=== PATIENT | female | born 1985 | race Caucasian/White ===

== ENCOUNTER 2019-10-31 22:46 | Emergency (ER) | payer OTHER, SELFPAY ==
--- NOTE | ~2019-10-31 | XR_ITS ---
EXAMINATION: XR chest 2V DATE: 10/31/2019 23:38 INDICATION: Nonproductive cough TECHNIQUE: PA and lateral views of the chest are obtained. COMPARISON: 10/20/2017 FINDINGS: The lungs are free of acute opacities. There is no pleural effusion or pneumothorax. The ca rdiomediastinal silhouette is normal. The visualized bones and soft tissues are unremarkable. IMPRESSION: 1. No acute cardiopulmonary abnormality. Reviewed, dictated and finalized at location A. ONAL LINES ADVISOR
--- NOTE | ~2019-10-31 | CT_ITS ---
EXAMINATION: CT abdomen pelvis w con INDICATION: Right flank and abdominal pain TECHNIQUE: Computed tomographic images of the abdomen and pelvis were obtained after the administrati on of 100 cc of Omnipaque 350 intravenous contrast. The dose-length product (DLP) was 343.16 mGy-cm. Automated exposure control and iterative reconstruction technique were employed. COMPARISON: 10/20/2017 FINDINGS: Minimal dependent atelectasis is present in the lung bases. The heart size is normal. The g allbladder is surgically absent. There is mild enlargement of the common bile duct and central intrah epatic ducts which is likely due to post cholecystectomy state. The liver, spleen, pancreas, and adre nal glands are normal. The kidneys are unremarkable. No pathologically enlarged abdominal or pelvic l ymph nodes are identified. There is no free intraperitoneal gas or evidence of bowel obstruction. A l arge volume of colonic stool is present. There is a small umbilical hernia containing fat. IMPRESSION: 1. Constipation. Reviewed, dictated and finalized at location A. TRICAL PROSPECTING OPERATOR IMPRESSION: 1. Constipation.
[2019-10-31 22:50] VITALS: BP 151/74; PULSE 77; RESP 18; TEMP 37.1; O2SAT 100
--- NOTE | 2019-10-31 23:09 | ED.ABDPAIN ---
HPI - Abdominal Pain General Chief Complaint: Urogenital-Female Stated Complaint: right flank pain, urinating blood Time Seen by Provider: 10/31/19 22:55 Source: patient and RN notes reviewed Mode of arrival: ambulatory Limitations: no limitations History of Present Illness HPI narrative: Pt is a 34 y/o female with a Hx of kidney stones, who presents to the ED with c/o rt flank pain starting 4 days ago. She notes that her pain radiates upwards into her rt lower ribs. Pt also reports intermittent shooting pains in the lt side of her ABD, ABD distension, and nausea, but denies any vomiting or rash. She notes that she has been taking Tylenol and ASA for her symptoms. MD elicited complaint: flank pain Pertinent past history: kidney stones and past UTI Onset (ago): day(s) (4) Location: R flank Radiation: other (rt lower ribs) Associated symptoms: nausea and other (shooting pain in lt side of ABD; ABD distension) Related Data Allergies Allergy/AdvReac Type Severity Reaction Status Date / Time cephalexin Allergy Unknown Verified 03/27/12 10:05 Cephalosporins Allergy Unknown Verified 08/20/16 11:16 levothyroxine sodium Allergy Unknown Verified 08/20/16 11:16 metoclopramide Allergy Unknown PANIC Verified 10/10/18 11:12 ATTACK morphine Allergy Unknown Verified 08/20/16 11:16 Review of Systems Review of Systems: All systems reviewed & are unremarkable except as noted in HPI and below Gastrointestinal: Gastrointestinal: Reports abdominal pain (shooting pain in lt side of ABD), Reports nausea, Denies vomiting and Reports other (ABD distension) Genitourinary: Genitourinary: Reports flank pain (rt flank pain radiating into rt lower ribs) Integumentary/Breasts: Skin/Breast: Denies rash PMFSH Past Medical History Medical History Anemia Anxiety Back pain DDD (degenerative disc disease) Depression Endometriosis Fibromyalgia Heart murmur Hypothyroidism Kidney stones Migraines Mitral valve prolapse Ovarian cyst Pneumonia Rheumatoid arthritis Rib fractures UTI (urinary tract infection) Surgical History Surgical History History of hysterectomy Hx of cholecystectomy Hx of dilation and curettage Hx of ovarian cystectomy Hx of tonsillectomy Hx of tubal ligation Family History Family History (Updated 06/02/14 @ 07:13 by DOCTOR UNKNOWN) Mother Family history of migraine headaches Asthma Social History Social History Smoking status: Heavy tobacco smoker Alcohol intake: current Comments PCP is Dr. Barbour. Exam Narrative: Exam Narrative: APPEARANCE: No acute distress, nontoxic, resting in bed HEENT: Normocephalic, atraumatic, OMM RESPIRATORY: No respiratory distress, clear to auscultation bilaterally with no rhonchi wheezing or rales CARDIOVASCULAR: RRR s murmur ABDOMINAL: Soft, nondistended, tender palpation right upper quadrant, no tenderness in left upper quadrant, left lower quadrant right lower quadrant, no rebound or guarding, right flank tenderness, no overlying erythema or signs of infection MUSCULOSKELETAl: Moves all extremities. No clubbing, cyanosis or edema. NEURO: Awake and alert. Following commands, speech normal, no focal deficits SKIN:: Warm, dry. Normal Color PSYCHIATRIC: Normal affect/mood Course Course Emergency Course: Patient meets PERC rule criteria and no further testing needs to be performed for pulmonary embolism. Patient sleeping in room patient was awake and states she is feeling better at this time Patient states that they are feeling much better at this time. States abdominal pain has improved. Repeat abdominal exam shows the patient's abdomen to be soft and nontender. Discussed with patient results of workup and diagnosis. Discussed need for follow-up with primary care physician, reasons to return to the emergency department in proper u
[2019-10-31] MEDS: LACTATED RINGERS 1,000 ML 999 ML IV CONT (23:17)
[2019-10-31] MEDS: KETOROLAC 30 MG/ML VIAL (*BKC) IV PUSH (23:24)
[2019-10-31 23:38] LABS: Basophils Percent Auto 0.3 % (0.2-1.2); Eosinophils Absolute Auto 0.1 K/mm3 (0-0.3); Eosinophils Percent Auto 0.7 % (0-4.4); Hematocrit 40.7 % (37.0-47.0); Hemoglobin 13.2 g/dL (12.0-15.0); Immature Granulocyte Absolute 0.02 K/mm3 (0.00-0.031); Immature Granulocyte Percent A 0.2 % (0-0.5); Lymphocytes Percent Auto 37.3 % (18.3-44.2); Mean Corpuscular HGB Conc 32.4 g/dl (32-36); Mean Corpuscular Hemoglobin 30.4 pg (26-34); Mean Corpuscular Volume 93.8 fl (80-100); Mean Platelet Volume 9.5 fl (7.4-10.4); Monocytes Absolute Auto 0.4 K/mm3 (0.1-0.6); Monocytes Percent Auto 4.3 % (2.6-8.5); Neutrophils Absolute Auto 4.9 K/mm3 (1.3-6.7); Neutrophils Percent Auto 57.2 % (45.5-73.1); Platelet Count Result 261 k/mm3 (150-375); Red Blood Count 4.34 M/mm3 (4.2-5.4); White Blood Count 8.6 K/mm3 (4.5-10.0)
[2019-10-31 23:47] LABS: Alanine Aminotransferase 13 U/L (4-35); Albumin Level 4.1 g/dL (3.5-5.1); Alkaline Phosphatase 57 U/L (38-126); Aspartate Amino Transferase 21 U/L (14-36); Bilirubin,Total 0.1 mg/dL (0.2-1.3); Blood Urea Nitrogen 5 mg/dL (7-17); Calcium 9.4 mg/dL (8.4-10.2); Carbon Dioxide 29 mmol/L (22-30); Chloride 103 mmol/L (98-107); Estimated CRCL calculation 118 ml/min; Estimated Glomerular Filt Rate > 60; Glucose 82 mg/dL (65-105); Lipase 73 U/L (23-300); Potassium 3.8 mmol/L (3.4-5.0); Sodium 140 mmol/L (137-145)
[2019-11-01 00:29] LABS: Add Urine Microscopic? NO; Appearance Urine Clear (Clear); Bilirubin Urine Negative (Negative); Blood Urine Negative (Negative); Color Urine Straw (Yellow); Glucose Urine UA Negative (Negative); Ketones Urine Negative (Negative); Leukocyte Esterase Ur Negative LEU/UL (Negative); Nitrate Urine Negative (Negative); Protein Urine Negative (Negative); Specific Grav Ur 1.008 (1.001-1.035); Urobilinogen Urine Negative mg/dL (<2.0)
[2019-11-01] MEDS: HYDROMORPHONE HCL 1 MG/ML INJ 0.5 MG IV PUSH (01:10)
[2019-11-01 01:16] VITALS: BP 123/68; PULSE 70; RESP 18; O2SAT 99
--- NOTE | 2019-11-14 02:33 | PC.NURSE ---
LATE ENTRY This note is being entered to document information to the patient's record. The following information was omitted on [11/01/19], by [new].1L of LR finished infusing at 00:15.
--- NOTE | 2019-11-15 13:44 | PC.NURSE ---
LATE ENTRY This note is being entered to document information to the patient's record. The following information was omitted on [11/01/2019], by [Saul Garcia RN]. LR stopped at 0015
== END 2019-11-01 01:17 | disposition home or self-care (01) ==
PROVIDERS: Emergency Provider Emergency Medicine
DX: R10.11 Right upper quadrant pain (principal); Z86.2 Personal history of diseases of the blood and blood-forming organs and certain disorders involving the immune mechanism; N80.9 Endometriosis, unspecified; M79.7 Fibromyalgia; E03.9 Hypothyroidism, unspecified; I34.1 Nonrheumatic mitral (valve) prolapse; M06.9 Rheumatoid arthritis, unspecified; Z87.440 Personal history of urinary (tract) infections; K59.00 Constipation, unspecified
CPT/HCPCS: 36415; 71046; 74177; 80053; 81003; 83690; 85025; 96361; 96374; 96375; 99284; J1170; J1885; J7120; Q9967

== ENCOUNTER 2020-01-27 20:30 | Emergency (ER) | payer OTHER, SELFPAY ==
--- NOTE | ~2020-01-27 | CT_ITS ---
EXAMINATION: CTA chest PE protocol EXAM DATE: 01/27/2020 21:57 INDICATION: Cough and shortness of breath. Right flank pain. TECHNIQUE: Spiral CTA of the chest (pulmonary arteries) was performed with 100 cc Omnipaque 350 intr avenous contrast injection. Images were acquired during the pulmonary arterial phase. Coronal maxi mum intensity projection 3D-reconstructions were created by the technologist on dedicated workstation . Axial, coronal and sagittal reformatted images were reviewed. The dose-length product (DLP) for t his examination was 198.54 mGy-cm. The exposure was tailored according to patient size (auto mA exp osure control), and iterative reconstruction (ASIR) was used as additional dose reduction technique. Comparison is made to prior examination from 12/18/2006. FINDINGS: Pulmonary arteries are well opacified and without intraluminal filling defects. No thora cic aortic dissection. The lungs are clear. There are no pleural or pericardial effusions. Trach eobronchial tree is patent. There is no mediastinal, hilar or axillary lymphadenopathy. There is no pneumothorax. Heart normal in size. No evidence of coronary arterial calcification. The upper pole of the right kidney was imaged and is without hydronephrosis. There are cholecystectom y clips. There are subacute right ninth and 10th rib fractures posteromedially, with exuberant callu s formation, but incomplete solid bone bridging. Potential reinjury to one of these could be a cause of right flank pain. IMPRESSION: 1. No pulmonary emboli or acute cardiopulmonary findings. 2. Subacute right ninth and 10th rib fractures posteromedially. Reviewed, dictated and finalized at location G.
[2020-01-27 20:32] VITALS: BP 149/71; PULSE 88; RESP 18; TEMP 37.7; O2SAT 100
--- NOTE | 2020-01-27 20:48 | ED.ABDPAIN ---
HPI - Abdominal Pain General Chief Complaint: Abdominal Pain Stated Complaint: n/v and fever Time Seen by Provider: 01/27/20 20:45 History of Present Illness HPI narrative: She reports stabbing pain in the right flank for the past few days. Worse with coughing and deep breathing. She does report a chronic cough that has been worse recently. Associated with mild dypnea and low grade fever. She has also had occasional nausea. Related Data Allergies Allergy/AdvReac Type Severity Reaction Status Date / Time cephalexin Allergy Unknown Verified 03/27/12 10:05 Cephalosporins Allergy Unknown Verified 08/20/16 11:16 levothyroxine sodium Allergy Unknown Verified 08/20/16 11:16 metoclopramide Allergy Unknown PANIC Verified 10/10/18 11:12 ATTACK morphine Allergy Unknown Verified 08/20/16 11:16 Review of Systems Review of Systems: All systems reviewed & are unremarkable except as noted in HPI and below Constitutional: Constitutional: Denies fatigue, Reports fever(s) and Denies weakness ENT: Denies sore throat Cardiovascular: Cardiovascular: Denies chest pain Respiratory: Respiratory: Reports cough and Reports dyspnea Gastrointestinal: Gastrointestinal: Reports nausea Genitourinary: Genitourinary: Denies hematuria and Denies dysuria Neurologic: Denies dizziness and Denies weakness PMFSH Past Medical History Medical History Anemia Anxiety Back pain DDD (degenerative disc disease) Depression Endometriosis Fibromyalgia Heart murmur Hypothyroidism Kidney stones Migraines Mitral valve prolapse Ovarian cyst Pneumonia Rheumatoid arthritis Rib fractures UTI (urinary tract infection) Surgical History Surgical History History of hysterectomy Hx of cholecystectomy Hx of dilation and curettage Hx of ovarian cystectomy Hx of tonsillectomy Hx of tubal ligation Family History Family History Mother Family history of migraine headaches Asthma Social History Social History Smoking status: Heavy tobacco smoker Alcohol intake: current Gender identity (if verbalized by the patient): Female Exam Const: General: no acute distress and alert Orientation/consciousness: patient oriented x3 HENMT: Head: normal to inspection Resp: Effort & Inspection: normal respiratory effort Auscultation: clear to auscultation bilaterally Cardio: Rate: regular rate Rhythm: regular rhythm GI: GI Palp: Yes Soft to palpation and No Tenderness to palpation present (GI) Back/Spine/Pelvis: Other: tenderness over right ribs inferior laterally Skin: General skin exam: normal color Neuro: General: patient oriented x3, moves all extremities, no focal motor deficits and CN's II-XI intact bilaterally Speech: normal speech Extrem: General: normal to inspection and no edema Course Vital Signs Vital signs: Vital Signs Temperature 37.7 C H 01/27/20 20:32 Pulse Rate 88 01/27/20 20:32 Respiratory Rate 18 01/27/20 20:32 Blood Pressure 149/71 H 01/27/20 20:32 Pulse Oximetry 100 01/27/20 20:32 Temperature 36.3 C L 01/27/20 23:29 Pulse Rate 80 01/27/20 23:29 Respiratory Rate 19 01/27/20 23:29 Blood Pressure 133/75 01/27/20 23:29 Pulse Oximetry 100 01/27/20 23:29 MDM - Abdominal Pain MDM Narrative Medical decision making narrative: CT shows rib fractures. No PE or pneumonia Differential Diagnosis Differential diagnosis: Likely calculus of kidney and other (PE, pneumonia, pleurisy) Medical Records Attestation: I reviewed the patient's medical records. Lab Data Attestation: I reviewed the patient's lab results. Result diagrams: 01/27/20 21:14 01/27/20 21:14 Labs: Lab Results 01/27/20 01/27/20 01/27/20 Range/Units 20:45 21:11 21:14
[2020-01-27 20:55] LABS: Add Urine Microscopic? NO; Appearance Urine Clear (Clear); Bilirubin Urine Negative (Negative); Blood Urine Negative (Negative); Color Urine Straw (Yellow); Glucose Urine UA Negative (Negative); Ketones Urine Negative (Negative); Leukocyte Esterase Ur Negative LEU/UL (Negative); Nitrate Urine Negative (Negative); Protein Urine Negative (Negative); Specific Grav Ur 1.006 (1.001-1.035); Urobilinogen Urine Negative mg/dL (<2.0)
--- NOTE | 2020-01-27 20:59 | ECG_ITS ---
Measurements Intervals [place] Rate: 74 P: 60 NJ: 204 QRS: -68 QRSD: 149 T: 89 QT: 330 QTc: 367 Interpretive Statements SINUS RHYTHM LEFT AXIS DEVIATION BORDERLINE AV CONDUCTION DELAY IVCD- QRS MORPHOLOGY OF BOTH RBBB, LBBB BASELINE WANDER- I, II, AVR, AVL, AVF, V1-V4 ABNORMAL ECG Electronically Signed On 01-28-2020 7:10:02 CDT by Memo Banda D.O.
[2020-01-27 21:21] LABS: Basophils Percent Auto 0.4 % (0.2-1.2); Eosinophils Percent Auto 0.5 % (0-4.4); Hematocrit 42.1 % (37.0-47.0); Hemoglobin 13.9 g/dL (12.0-15.0); Immature Granulocyte Absolute 0.01 K/mm3 (0.00-0.031); Immature Granulocyte Percent A 0.1 % (0-0.5); Lymphocytes Percent Auto 40.8 % (18.3-44.2); Mean Corpuscular Hemoglobin 30.5 pg (26-34); Mean Corpuscular Volume 92.5 fl (80-100); Monocytes Absolute Auto 0.3 K/mm3 (0.1-0.6); Monocytes Percent Auto 3.9 % (2.6-8.5); Neutrophils Percent Auto 54.3 % (45.5-73.1); Platelet Count Result 289 k/mm3 (150-375); Red Blood Count 4.55 M/mm3 (4.2-5.4); Red Cell Distribution Width 12.5 % (11.5-14.5); White Blood Count 7.4 K/mm3 (4.5-10.0)
[2020-01-27 21:32] LABS: Alanine Aminotransferase 11 U/L (4-35); Albumin Level 4.1 g/dL (3.5-5.1); Alkaline Phosphatase 62 U/L (38-126); Aspartate Amino Transferase 20 U/L (14-36); Bilirubin,Total 0.2 mg/dL (0.2-1.3); Blood Urea Nitrogen 7 mg/dL (7-17); Calcium 9.5 mg/dL (8.4-10.2); Carbon Dioxide 34 mmol/L (22-30); Chloride 101 mmol/L (98-107); Estimated CRCL calculation 103 ml/min; Estimated Glomerular Filt Rate > 60; Glucose 112 mg/dL (65-105); Lipase 91 U/L (23-300); Potassium 3.7 mmol/L (3.4-5.0); Sodium 139 mmol/L (137-145)
[2020-01-27 22:06] LABS: INR 0.9
[2020-01-27 22:07] LABS: Partial Thromboplastin Time 28.5 SECONDS (22.3-36.8)
[2020-01-27 22:10] LABS: Basophils Percent Auto 0.5 % (0.2-1.2); Eosinophils Percent Auto 0.5 % (0-4.4); Hematocrit 42.5 % (37.0-47.0); Hemoglobin 13.7 g/dL (12.0-15.0); Immature Granulocyte Absolute 0.02 K/mm3 (0.00-0.031); Immature Granulocyte Percent A 0.3 % (0-0.5); Lymphocytes Absolute Auto 3.12 K/mm3 (0.9-3.2); Lymphocytes Percent Auto 42.6 % (18.3-44.2); Mean Corpuscular HGB Conc 32.2 g/dl (32-36); Mean Corpuscular Hemoglobin 29.9 pg (26-34); Mean Corpuscular Volume 92.8 fl (80-100); Mean Platelet Volume 10.2 fl (7.4-10.4); Monocytes Absolute Auto 0.3 K/mm3 (0.1-0.6); Monocytes Percent Auto 4.1 % (2.6-8.5); Neutrophils Absolute Auto 3.8 K/mm3 (1.3-6.7); Platelet Count Result 299 k/mm3 (150-375); Red Blood Count 4.58 M/mm3 (4.2-5.4); Red Cell Distribution Width 12.7 % (11.5-14.5); White Blood Count 7.3 K/mm3 (4.5-10.0)
[2020-01-27] MEDS: ONDANSETRON INJ 4 MG/2 ML VIAL IV PUSH (22:30)
[2020-01-27 22:58] VITALS: BP 122/83; PULSE 78; RESP 18; O2SAT 100
[2020-01-27] MEDS: KETOROLAC 30 MG/ML VIAL (*BKC) IV PUSH (23:28)
[2020-01-27 23:29] VITALS: BP 133/75; PULSE 80; RESP 19; TEMP 36.3; O2SAT 100
== END 2020-01-27 23:30 | disposition home or self-care (01) ==
PROVIDERS: Emergency Provider Emergency Medicine
DX: S22.41XA Multiple fractures of ribs, right side, initial encounter for closed fracture (principal); Z86.2 Personal history of diseases of the blood and blood-forming organs and certain disorders involving the immune mechanism; N80.9 Endometriosis, unspecified; M79.7 Fibromyalgia; E03.9 Hypothyroidism, unspecified; Z87.442 Personal history of urinary calculi; I34.1 Nonrheumatic mitral (valve) prolapse; M06.9 Rheumatoid arthritis, unspecified; Z87.440 Personal history of urinary (tract) infections; X58.XXXA Exposure to other specified factors, initial encounter
CPT/HCPCS: 36415; 71275; 80053; 81003; 81025; 83690; 85025; 85610; 85730; 93005; 96374; 96375; 99284; J1885; J2405; Q9967

== ENCOUNTER 2022-07-02 12:43 | Emergency (ER) | payer OTHER, SELFPAY ==
--- NOTE | ~2022-07-02 | XR_ITS ---
EXAMINATION: XR foot RT min 3V DATE: 07/02/2022 13:13 INDICATION: Crush injury of the foot TECHNIQUE: Dorsoplantar, lateral, and 2 oblique views of the right foot were obtained. COMPARISON: 12/02/2012 FINDINGS: There is no fracture, dislocation, or subluxation. The bones, soft tissues, and joint space s are normal. IMPRESSION: 1. No acute osseous abnormality. Reviewed, dictated and finalized at location A.
[2022-07-02 12:47] VITALS: BP 147/88; PULSE 78; RESP 16; TEMP 36.7; O2SAT 98
--- NOTE | 2022-07-02 13:07 | ED.LOWEXIN ---
HPI - Extremity Injury (Lower) General Chief Complaint: Extremity Injury, Lower Stated Complaint: r foot injury Time Seen by Provider: 07/02/22 13:02 Source: patient and RN notes reviewed Mode of arrival: ambulatory Limitations: no limitations History of Present Illness HPI Narrative: This is a 37 year old female who presents for evaluation of right foot pain. Patient states she was at work when a heavy cart accidentally was rolled over her right foot. This occurred on Friday. She states her foot was swollen and bruised at the time of the injury. She has come to xray today because she is still having pain with improvement of bruising and swelling. SHe has been taking tylenol and ibuprofen with relief of her pain. Her pain is located right lateral and top her of her right foot. Related Data Home Medications Medication Instructions Recorded Confirmed No Home Medications 07/02/22 Allergies Allergy/AdvReac Type Severity Reaction Status Date / Time cephalexin Allergy Unknown Rash Verified 07/02/22 12:52 Cephalosporins Allergy Unknown Rash Verified 07/02/22 12:52 levothyroxine sodium Allergy Unknown Rash Verified 07/02/22 12:52 metoclopramide Allergy Unknown PANIC Verified 10/10/18 11:12 ATTACK morphine Allergy Unknown Rash Verified 07/02/22 12:52 Review of Systems Review of Systems: All systems reviewed & are unremarkable except as noted in HPI and below Musculoskeletal: Musculoskeletal: Reports arthralgias and Denies joint swelling Integumentary/Breasts: Skin/Breast: Denies rash and Denies skin ulcer PMFSH Past Medical History Medical History (Updated 07/02/22 @ 13:31 by Patience Jensen MD) Anemia Anxiety Back pain DDD (degenerative disc disease) Depression Endometriosis Fibromyalgia Heart murmur Hypothyroidism Kidney stones Migraines Mitral valve prolapse Ovarian cyst Pneumonia Rheumatoid arthritis Rib fractures UTI (urinary tract infection) Surgical History Surgical History History of hysterectomy Hx of cholecystectomy Hx of dilation and curettage Hx of ovarian cystectomy Hx of tonsillectomy Hx of tubal ligation Family History Family History Mother Family history of migraine headaches Asthma Social History Social History Smoking status: Heavy tobacco smoker Alcohol intake: current Gender identity (if verbalized by the patient): Female Exam Const: General: no acute distress and alert Nutritional Appearance: thin Orientation/consciousness: patient oriented x3 Limitations: no limitations HENMT: Head: normal to inspection Eyes: EOM: EOMs intact bilaterally Resp: Effort & Inspection: normal respiratory effort Skin: General skin exam: normal color Rashes: no rashes Wounds: no wounds Neuro: General: patient oriented x3 Speech: normal speech Extrem: Other: right lateral and dorsum of foot with TTP , no bruising, no deformity Psych: Mental Status: mental status grossly normal Course Reevaluation(s) Reevaluation #1: I Discussed with patient that her xray is negative for fracture. Date: 07/02/22 Time: 13:30 Vital Signs Vital signs: Vital Signs Temperature 98.1 F 07/02/22 12:47 Pulse Rate 78 07/02/22 12:47 Respiratory Rate 16 07/02/22 12:47 Blood Pressure 147/88 H 07/02/22 12:47 Pulse Oximetry 98 07/02/22 12:47 Oxygen Delivery Room Air 07/02/22 12:47 Temperature 98.1 F 07/02/22 12:47 Pulse Rate 78 07/02/22 12:47 Respiratory Rate 16 07/02/22 12:47 Blood Pressure 147/88 H 07/02/22 12:47 Pulse Oximetry 98 07/02/22 12:47 Oxygen Delivery Room Air 07/02/22 12:47 MDM - Extremity Injury (Lower) Imaging Data Radiologist's impression: ITS Impressions Foot X-Ray 07/02/22 13:14 IMPRESSION: 1. No acute osseous abnormali
== END 2022-07-02 14:00 | disposition home or self-care (01) ==
LOC: ANHED 13:37
PROVIDERS: Emergency Provider General Practice
DX: S90.31XA Contusion of right foot, initial encounter (principal); I34.1 Nonrheumatic mitral (valve) prolapse; M06.9 Rheumatoid arthritis, unspecified; M79.7 Fibromyalgia; N80.9 Endometriosis, unspecified; Z87.01 Personal history of pneumonia (recurrent); Z87.442 Personal history of urinary calculi; Z87.440 Personal history of urinary (tract) infections; Z90.710 Acquired absence of both cervix and uterus; F17.200 Nicotine dependence, unspecified, uncomplicated; W22.8XXA Striking against or struck by other objects, initial encounter
CPT/HCPCS: 73630; 99283

== ENCOUNTER 2022-07-17 20:42 | Emergency (ER) | payer OTHER, SELFPAY ==
--- NOTE | ~2022-07-17 | CT_ITS ---
EXAMINATION: CT cervical spine wo con DATE: 07/17/2022 22:50 INDICATION: RUE weakness TECHNIQUE: Computed tomography (CT) of the cervical spine was performed without intravenous contrast. Automated exposure control and iterative reconstruction technique were employed. The dose-length pro duct was 148.08 mGy-cm. COMPARISON: None FINDINGS: Vertebral Body Alignment: Intact. Reversal of the normal cervical lordosis which can occur with posit ioning or muscle spasm. Craniocervical and atlantoaxial alignment: Moderate degenerative change. Alignment intact. Osseous structures/fracture: No evidence of a lytic or blastic process in the visualized spine. No e vidence of acute fracture. Unfused posterior C1 arch. Cervical soft tissues: The paraspinal soft tissues planes are maintained. Paraseptal blebs on the rig ht. Centrilobular groundglass opacities bilaterally. Degenerative changes: Moderate degenerative disc disease at C5-6. 4 mm left paracentral disc protrusi on at C5-6. No severe central canal or neural foraminal narrowing. IMPRESSION: No acute fracture or traumatic malalignment in the cervical spine. Moderate degenerative disc disease and a 4 mm left paracentral disc protrusion at C5-6. Pulmonary opacities may reflect hypersensitivit y pneumonitis, respiratory bronchiolitis in smokers, or infectious airways disease. Reviewed, dictated and finalized at location K. IMPRESSION: No acute fracture or traumatic malalignment in the cervical spine. Moderate deg enerative disc disease and a 4 mm left paracentral disc protrusion at C5-6. Pul monary opacities may reflect hypersensitivity pneumonitis, respiratory bronchio litis in smokers, or infectious airways disease.
--- NOTE | ~2022-07-17 | XR_ITS ---
EXAM: XR wrist RT min 3V DATE: 07/17/2022 22:31 HISTORY: wrist weakness, NO INJURY . COMPARISON: X-ray hand 03/24/2012. FINDINGS: Normal mineralization. No fracture or dislocation. No lytic or blastic lesion. Joint space s are maintained. No erosion or periosteal change. Soft tissues within normal limits. IMPRESSION: No acute osseous finding in the right wrist. Reviewed, dictated and finalized at location K.
--- NOTE | ~2022-07-17 | CT_ITS ---
EXAMINATION: CT brain wo con DATE: 07/17/2022 22:47 INDICATION: RUE weakness . TECHNIQUE: Computed tomography (CT) of the head was performed without intravenous contrast. The mA wa s adjusted according to patient size. Iterative reconstruction technique was employed. The dose-lengt h product was 605.33 mGy-cm. COMPARISON: 01/01/2012. FINDINGS: No acute intracranial hemorrhage or extra-axial fluid collection. No hydrocephalus, mass, or herniation. No acute ischemic infarct. Unremarkable dural venous sinus attenuation. No acute osseous abnormality. The aerated spaces are clear. IMPRESSION: No acute intracranial process. Reviewed, dictated and finalized at location K.
[2022-07-17 21:06] VITALS: BP 135/90; PULSE 62; RESP 14; TEMP 36.6; O2SAT 100
--- NOTE | 2022-07-17 22:25 | ED.GENADULT ---
HPI - General Adult General Chief complaint: Headache Stated complaint: migraine, wrist problem Time Seen by Provider: 07/17/22 22:00 History of Present Illness HPI narrative: 37-year-old female presents the emergency room for evaluation of weakness in her right wrist. 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 Patient states that she also ethyl blender steering well with her right wrist. Woke up yesterday noticed weakness and loss of function to her right wrist. Denies any injury or trauma. Denies any sensory changes. States is unable to design engineer products objects with her right and, and is unable to move her wrist in certain directions. Related Data Allergies Allergy/AdvReac Type Severity Reaction Status Date / Time cephalexin Allergy Unknown Rash Verified 07/02/22 12:52 Cephalosporins Allergy Unknown Rash Verified 07/02/22 12:52 levothyroxine sodium Allergy Unknown Rash Verified 07/02/22 12:52 metoclopramide Allergy Unknown PANIC Verified 10/10/18 11:12 ATTACK morphine Allergy Unknown Rash Verified 07/02/22 12:52 Review of Systems Review of Systems: CONSTITUTIONAL: Denies fever, chills, or sweats. EYES: Denies visual changes, redness, or discharge. ENT: Denies rhinorrhea, congestion, sore throat, or otalgia. CARDIOVASCULAR: Denies chest pain, palpitations, or edema. RESPIRATORY: Denies cough or dyspnea. GASTROINTESTINAL: Denies abdominal pain, nausea, vomiting, or diarrhea. GENITOURINARY: Denies dysuria or hematuria. SKIN: Denies rash or itching. MUSCULOSKELETAL: Denies back pain, joint pain, or myalgia. NEUROLOGIC: Denies headache, numbness, dizziness, or weakness. PSYCHIATRIC: Denies anxiety or depression. [facility] Past Medical History Medical History (Updated 07/17/22 @ 23:23 by Vish Shukla APRN) Anemia Anxiety Back pain DDD (degenerative disc disease) Depression Endometriosis Fibromyalgia Heart murmur Hypothyroidism Kidney stones Migraines Mitral valve prolapse Ovarian cyst Pneumonia Rheumatoid arthritis Rib fractures UTI (urinary tract infection) Surgical History Surgical History History of hysterectomy Hx of cholecystectomy Hx of dilation and curettage Hx of ovarian cystectomy Hx of tonsillectomy Hx of tubal ligation Family History Family History Mother Family history of migraine headaches Asthma Social History Social History Smoking status: Heavy tobacco smoker Alcohol intake: current Gender identity (if verbalized by the patient): Female Exam Narrative: GENERAL: Well-appearing, well-nourished, no physical limitations, and in no acute distress. HEAD: Normocephalic, atraumatic. EYES: Conjunctivae normal, PERRLA and EOMI. CHEST: Clear to auscultation. No respiratory distress. No wheezes rales or rhonchi. No tenderness. HEART: Regular rate and rhythm. No murmur heard. Normal peripheral pulses. BACK: No cervical/thoracic/lumbar tenderness, step-offs, bony abnormality; FROM EXTREMITIES: RUE: No bony abnormality. Full range of motion of the shoulder and elbow joints. Weakness of the wrist extensors, finger extensors and brachial radialis muscle. There is no sensory loss over the plantar or dorsal surfaces of the hand. Weakness over ulnar innervated hand muscles and thumb adduction. Weakness with wrist extension. SKIN: Warm, dry, no rash. No noted wounds NEURO: See extremities PSYCH: Cooperative. Normal mood and affect. Course Vital Signs Vital signs: Vital Signs Temperature 36.6 C 07/17/22 21:06 Pulse Rate 62 07/17/22 21:06 Respiratory Rate 14 07/17/22 21:06 Blood Pressure 135/90 07/17/22 21:06 Pulse Oximetry 100 07/17/22 21:06 Oxygen Delivery Room Air 07/17/22 21:06 Temperature 36.6 C 07/17/22 21:06 Pulse Rate 62 07/17/22 21:06 Respiratory
== END 2022-07-17 23:29 | disposition home or self-care (01) ==
PROVIDERS: Emergency Provider Nurse Practitioner Family
DX: G56.31 Lesion of radial nerve, right upper limb (principal); E03.9 Hypothyroidism, unspecified; I34.1 Nonrheumatic mitral (valve) prolapse; M06.9 Rheumatoid arthritis, unspecified; M79.7 Fibromyalgia; Z87.01 Personal history of pneumonia (recurrent); Z87.442 Personal history of urinary calculi; Z87.440 Personal history of urinary (tract) infections; Z86.2 Personal history of diseases of the blood and blood-forming organs and certain disorders involving the immune mechanism; Z90.710 Acquired absence of both cervix and uterus; F17.200 Nicotine dependence, unspecified, uncomplicated
CPT/HCPCS: 70450; 72125; 73110; 99284

== ENCOUNTER 2022-08-06 16:07 | Emergency (ER) | payer OTHER, SELFPAY ==
[2022-08-06 16:48] VITALS: BP 134/93; PULSE 76; RESP 14; TEMP 36.9; O2SAT 100
[2022-08-06 18:20] VITALS: BP 151/98; PULSE 71; RESP 16; TEMP 36.8; O2SAT 100
[2022-08-06] MEDS: HYDROcodone/acetaminophen (*CRX) 5-325 MG TABLET 1 TAB PO (19:29)
[2022-08-06] MEDS: AMOXICILLIN/CLAVULANATE K 875-125 MG TAB 1 TABLET PO (19:29)
--- NOTE | 2022-08-06 19:31 | ED.DENTAL ---
HPI - Dental/Oral General Chief complaint: Dental/Oral Stated complaint: TOOTH PAIN, PALPATATIONS NOTED. PVC ON EKG Time Seen by Provider: 08/06/22 19:05 History of Present Illness HPI Narrative: Patient is a 37-year-old female who presents the ER with pain to the right lower jaw. Feels like dental pain she said previously. Located tooth #28. She does have some mild swelling. Radiates into the right ear. Worse with eating and drinking. No fevers or chills or sweats. No difficulty breathing or swallowing. Related Data Allergies Allergy/AdvReac Type Severity Reaction Status Date / Time cephalexin Allergy Unknown Rash Verified 07/02/22 12:52 Cephalosporins Allergy Unknown Rash Verified 07/02/22 12:52 levothyroxine sodium Allergy Unknown Rash Verified 07/02/22 12:52 metoclopramide Allergy Unknown PANIC Verified 10/10/18 11:12 ATTACK morphine Allergy Unknown Rash Verified 07/02/22 12:52 Review of Systems Constitutional: Constitutional: Denies chills and Denies fever(s) ENT: Denies dysphagia, Denies nasal congestion and Denies sore throat Comments: Ear pain, dental pain Respiratory: Respiratory: Denies cough and Denies dyspnea Gastrointestinal: Gastrointestinal: Denies abdominal pain, Denies nausea and Denies vomiting PMFSH Past Medical History Medical History (Updated 08/06/22 @ 19:31 by Crow Harvey MD) Anemia Anxiety Back pain DDD (degenerative disc disease) Depression Endometriosis Fibromyalgia Heart murmur Hypothyroidism Kidney stones Migraines Mitral valve prolapse Ovarian cyst Pneumonia Rheumatoid arthritis Rib fractures UTI (urinary tract infection) Surgical History Surgical History History of hysterectomy Hx of cholecystectomy Hx of dilation and curettage Hx of ovarian cystectomy Hx of tonsillectomy Hx of tubal ligation Family History Family History Mother Family history of migraine headaches Asthma Social History Social History Smoking status: Heavy tobacco smoker Alcohol intake: current Gender identity (if verbalized by the patient): Female Exam Narrative: GENERAL: Well-appearing, well-nourished, and in no acute distress. HEAD: Normocephalic, atraumatic. ENT: Mucous membranes moist. Right mandibular swelling with tenderness over the soft tissue at the base of tooth #28. No drainable abscess identified but certainly believe 1 is forming. TMs normal bilaterally. NECK: Supple. CHEST: Clear to auscultation. No respiratory distress. NEURO: Alert and oriented x3. PSYCH: Normal mood and affect. Course Course Emergency Course: [place] and Augmentin here. Discharge home with same medications. Vital Signs Vital signs: Vital Signs Temperature 98.5 F 08/06/22 16:48 Pulse Rate 76 08/06/22 16:48 Respiratory Rate 14 08/06/22 16:48 Blood Pressure 134/93 H 08/06/22 16:48 Pulse Oximetry 100 08/06/22 16:48 Oxygen Delivery Room Air 08/06/22 16:48 Temperature 98.3 F 08/06/22 18:20 Pulse Rate 71 08/06/22 18:20 Respiratory Rate 16 08/06/22 18:20 Blood Pressure 151/98 H 08/06/22 18:20 Pulse Oximetry 100 08/06/22 18:20 Oxygen Delivery Room Air 08/06/22 16:48 Discharge Plan Discharge Clinical Impression: Dental abscess Patient Disposition: Home, Self-Care Condition: Stable Instructions: Antibiotic Form, Dental Abscess (ED) Additional Instructions: Return the ER if you cannot breathe, you cannot swallow, you lose consciousness, you have additional concerns. Prescriptions: New hydrocodone-acetaminophen 5-325 mg tablet 1 tablet PO Q6H PRN (Reason: pain) Qty: 14 0RF amoxicillin-pot clavulanate 875-125 mg tablet 1 tablet PO Q12H Qty: 20 0RF No Action naproxen 500 mg tablet 500 mg PO BID Qty: 30 0RF Follow-up/Referrals: Dental
[2022-08-06 19:48] VITALS: BP 137/97; PULSE 72; RESP 16; O2SAT 98
== END 2022-08-06 19:49 | disposition home or self-care (01) ==
PROVIDERS: Emergency Provider Emergency Medicine
DX: K04.7 Periapical abscess without sinus (principal); E03.9 Hypothyroidism, unspecified; M06.9 Rheumatoid arthritis, unspecified; M79.7 Fibromyalgia; N80.9 Endometriosis, unspecified; Z90.710 Acquired absence of both cervix and uterus; Z87.01 Personal history of pneumonia (recurrent); Z87.442 Personal history of urinary calculi; Z86.2 Personal history of diseases of the blood and blood-forming organs and certain disorders involving the immune mechanism; F17.200 Nicotine dependence, unspecified, uncomplicated
CPT/HCPCS: 99283; A9270

== ENCOUNTER 2022-08-07 23:02 | Emergency (ER) | payer OTHER, SELFPAY ==
[2022-08-07 23:10] VITALS: BP 138/94; PULSE 75; RESP 16; TEMP 37.2; O2SAT 99
[2022-08-07] MEDS: ONDANSETRON HCL ODT 4 MG TABLET PO (23:27)
[2022-08-07] MEDS: SODIUM CHLORIDE 0.9% IV 1,000 ML 999 ML IV CONT (23:40)
--- NOTE | 2022-08-08 00:08 | ED.NAVMDI ---
HPI - Nausea/Vomiting/Diarrhea General Chief complaint: Nausea/Vomiting/Diarrhea Stated complaint: n/v Time Seen by Provider: 08/07/22 23:21 History of Present Illness HPI Narrative: Patient is a 37-year-old presents the ER with multiple morning. Be seen yesterday for a dental infection. She was prescribed antibiotics and pain medication. He was having trouble keeping this down due to her nausea. No fevers chills or sweats. No change in swelling of the face. No difficulty swallowing. Related Data Allergies Allergy/AdvReac Type Severity Reaction Status Date / Time cephalexin Allergy Unknown Rash Verified 07/02/22 12:52 Cephalosporins Allergy Unknown Rash Verified 07/02/22 12:52 levothyroxine sodium Allergy Unknown Rash Verified 07/02/22 12:52 metoclopramide Allergy Unknown PANIC Verified 10/10/18 11:12 ATTACK morphine Allergy Unknown Rash Verified 07/02/22 12:52 Review of Systems Constitutional: Constitutional: Denies chills and Denies fever(s) ENT: Denies dysphagia, Denies nasal congestion and Denies sore throat Comments: Dental pain, right facial swelling. Respiratory: Respiratory: Denies cough and Denies dyspnea Gastrointestinal: Gastrointestinal: Denies abdominal pain, Reports nausea and Reports vomiting PMFSH Past Medical History Medical History (Updated 08/08/22 @ 00:10 by Crow Harvey MD) Anemia Anxiety Back pain DDD (degenerative disc disease) Depression Endometriosis Fibromyalgia Heart murmur Hypothyroidism Kidney stones Migraines Mitral valve prolapse Ovarian cyst Pneumonia Rheumatoid arthritis Rib fractures UTI (urinary tract infection) Surgical History Surgical History History of hysterectomy Hx of cholecystectomy Hx of dilation and curettage Hx of ovarian cystectomy Hx of tonsillectomy Hx of tubal ligation Family History Family History Mother Family history of migraine headaches Asthma Social History Social History Smoking status: Heavy tobacco smoker Alcohol intake: current Gender identity (if verbalized by the patient): Female Exam Narrative: GENERAL: Well-appearing, well-nourished, and in no acute distress. HEAD: Normocephalic, atraumatic. ENT: Mucous membranes moist. Tender at the base of tooth #28 without abscess to drain. HEART: Regular rate and rhythm. Normal peripheral pulses. ABDOMEN: Soft, nontender, nondistended. NEURO: Alert and oriented x3. PSYCH: Normal mood and affect. Course Course Emergency Course: Patient is here with Zofran and fluids. Discharged with antiemetics. Vital Signs Vital signs: Vital Signs Temperature 98.9 F 08/07/22 23:10 Pulse Rate 75 08/07/22 23:10 Respiratory Rate 16 08/07/22 23:10 Blood Pressure 138/94 H 08/07/22 23:10 Pulse Oximetry 99 08/07/22 23:10 Oxygen Delivery Room Air 08/07/22 23:10 Temperature 98.9 F 08/07/22 23:10 Pulse Rate 75 08/07/22 23:10 Respiratory Rate 16 08/07/22 23:10 Blood Pressure 138/94 H 08/07/22 23:10 Pulse Oximetry 99 08/07/22 23:10 Oxygen Delivery Room Air 08/07/22 23:10 Discharge Plan Discharge Clinical Impression: Nausea Patient Disposition: Home, Self-Care Condition: Stable Instructions: Acute Nausea and Vomiting (ED) Additional Instructions: Return the ER if you have fever of 100.4 ?F, you lose consciousness, you cannot swallow, you cannot breathe, or you have additional concerns. Prescriptions: New ondansetron 4 mg tablet,disintegrating 4 mg PO Q6H PRN (Reason: nausea and vomiting) Qty: 10 0RF No Action naproxen 500 mg tablet 500 mg PO BID Qty: 30 0RF hydrocodone-acetaminophen 5-325 mg tablet 1 tablet PO Q6H PRN (Reason: pain) Qty: 14 0RF amoxicillin-pot clavulanate 875-125 mg tablet 1 tablet PO Q12H Qty: 20 0RF Follo
[2022-08-08 00:30] VITALS: PULSE 78; RESP 16; O2SAT 98
== END 2022-08-08 00:32 | disposition home or self-care (01) ==
PROVIDERS: Emergency Provider Emergency Medicine
DX: R11.0 Nausea (principal); M79.7 Fibromyalgia; N80.9 Endometriosis, unspecified; E03.9 Hypothyroidism, unspecified; M06.9 Rheumatoid arthritis, unspecified; I34.1 Nonrheumatic mitral (valve) prolapse; Z86.2 Personal history of diseases of the blood and blood-forming organs and certain disorders involving the immune mechanism; Z87.442 Personal history of urinary calculi; Z87.440 Personal history of urinary (tract) infections; Z90.710 Acquired absence of both cervix and uterus; F17.200 Nicotine dependence, unspecified, uncomplicated
CPT/HCPCS: 96360; 99283; A9270; J7030

== ENCOUNTER 2024-01-10 15:31 | Emergency (ER) | payer OTHER, SELFPAY ==
[2024-01-10 15:44] VITALS: BP 117/62; PULSE 69; RESP 16; TEMP 36.7; O2SAT 99
--- NOTE | 2024-01-10 16:52 | ED.GENADULT ---
HPI - General Adult General Chief complaint: Wound/Laceration Stated complaint: wound recheck Time Seen by Provider: 01/10/24 15:47 History of Present Illness HPI narrative: 38-year-old female presenting to the emergency department for evaluation a wound check. Patient has had sutures in her leg for the last 7 days. Patient states the redness has improved. Patient was suspected that she may need the sutures removed but patient also states she usually takes longer to heal. Related Data Allergies Allergy/AdvReac Type Severity Reaction Status Date / Time cephalexin Allergy Unknown Rash Verified 01/10/24 15:51 Cephalosporins Allergy Unknown Rash Verified 01/10/24 15:51 levothyroxine sodium Allergy Unknown Rash Verified 01/10/24 15:51 metoclopramide Allergy Unknown PANIC Verified 01/10/24 15:51 ATTACK morphine Allergy Unknown Rash Verified 01/10/24 15:51 Review of Systems Review of Systems: All systems reviewed & are unremarkable except as noted in HPI and below PMFSH Past Medical History Medical History (Updated 01/11/24 @ 00:11 by Dick Solares) Anemia Anxiety Back pain DDD (degenerative disc disease) Depression Endometriosis Fibromyalgia Heart murmur Hypothyroidism Kidney stones Migraines Mitral valve prolapse Ovarian cyst Pneumonia Rheumatoid arthritis Rib fractures UTI (urinary tract infection) Surgical History Surgical History History of hysterectomy Hx of cholecystectomy Hx of dilation and curettage Hx of ovarian cystectomy Hx of tonsillectomy Hx of tubal ligation Family History Family History Mother Family history of migraine headaches Asthma Social History Social History Smoking status: Heavy tobacco smoker Alcohol intake: current Gender identity (if verbalized by the patient): Female Exam Narrative: APPEARANCE: Well appearing, no pain, no distress, well-nourished. HEAD: normocephalic, atraumatic. EYES: PERRLA/EOMI, conjunctivae clear. NECK: Supple. No adenopathy, no masses. RESPIRATORY: Airway patent, respirations nonlabored. Clear to auscultation bilaterally, no rales, rhonchi, wheezing. CARDIOVASCULAR: Regular rate and rhythm without murmurs rubs or gallops. ABDOMINAL: Soft, nontender, nondistended, normal bowel sounds MUSCULOSKELETAL: Moves all extremities. Strength/ROM intact, No edema, No calf tenderness. NEURO: Alert. Cranial nerves II through XII intact. Grossly intact SKIN: Well-appearing a laceration on left lower leg Course Course Emergency Course: Patient was updated on wound care and patient will have close follow-up Vital Signs Vital signs: Vital Signs Temperature 98.1 F 01/10/24 15:44 Pulse Rate 69 01/10/24 15:44 Respiratory Rate 16 01/10/24 15:44 Blood Pressure 117/62 01/10/24 15:44 Pulse Oximetry 99 01/10/24 15:44 Temperature 97.7 F 01/10/24 17:24 Pulse Rate 101 H 01/10/24 17:24 Respiratory Rate 16 01/10/24 17:24 Blood Pressure 118/74 01/10/24 17:24 Pulse Oximetry 95 01/10/24 17:24 Medical Decision Making MDM Narrative Medical decision making narrative: 38-year-old female presenting to the emergency department for evaluation for a wound check. Laceration was not ready to have the sutures removed. No evidence of cellulitis. Wound is well-appearing otherwise. Patient was comfortable with the plan for discharge and close follow-up. Vital Signs Vital Signs: Vital Signs Temperature 98.1 F 01/10/24 15:44 Pulse Rate 69 01/10/24 15:44 Respiratory Rate 16 01/10/24 15:44 Blood Pressure 117/62 01/10/24 15:44 Pulse Oximetry 99 01/10/24 15:44 Temperature 97.7 F 01/10/24 17:24 Pulse Rate 101 H 01/10/24 17:24 Respiratory Rate 16 01/10/24 17:24 Blood Pressure 118/74 01/10/24 17:24 Pulse Oximetry 95 04/
[2024-01-10 17:24] VITALS: BP 118/74; PULSE 101; RESP 16; TEMP 36.5; O2SAT 95
== END 2024-01-10 17:25 | disposition home or self-care (01) ==
PROVIDERS: Emergency Provider Emergency Medicine
DX: S81.812D Laceration without foreign body, left lower leg, subsequent encounter (principal); I34.1 Nonrheumatic mitral (valve) prolapse; E03.9 Hypothyroidism, unspecified; N80.9 Endometriosis, unspecified; F17.200 Nicotine dependence, unspecified, uncomplicated; Z87.442 Personal history of urinary calculi; Z87.01 Personal history of pneumonia (recurrent); Z86.2 Personal history of diseases of the blood and blood-forming organs and certain disorders involving the immune mechanism; Z90.49 Acquired absence of other specified parts of digestive tract; X58.XXXD Exposure to other specified factors, subsequent encounter
CPT/HCPCS: 99281

== ENCOUNTER 2024-07-28 18:57 | Emergency (ER) | payer OTHER, SELFPAY ==
--- NOTE | ~2024-07-28 | XR_ITS ---
EXAMINATION: XR foot LT min 3V DATE: 07/28/2024 19:24 INDICATION: Left foot bruising and pain post fall TECHNIQUE: Dorsoplantar, oblique and lateral views of the left foot were obtained. COMPARISON: None. FINDINGS: Alignment is normal. No fracture. Mild osteoarthritis at the first metatarsophalangeal joint. Soft ti ssues are unremarkable. IMPRESSION: 1. No acute osseous abnormality. Reviewed, dictated and finalized at location A.
[2024-07-28 18:59] VITALS: BP 153/84; PULSE 74; RESP 17; TEMP 36.6; O2SAT 100
--- NOTE | 2024-07-28 19:17 | ED_ITS ---
HPI - Fall General Chief Complaint: Fall Stated Complaint: fall at work again Time Seen by Provider: 07/28/24 19:08 History of Present Illness HPI Narrative: 29-year-old female presents to the emergency department for left foot pain for 3 days. 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 States she landed on her left foot. She did not hit her head or lose consciousness. She has no other injuries acquired. She is reporting pain and bruising to the dorsum of her left foot with pain over the 5th metatarsal. Patient states she has been taking Tylenol and ibuprofen with improvement. Related Data Allergies Allergy/AdvReac Type Severity Reaction Status Date / Time cephalexin Allergy Unknown Rash Verified 01/10/24 15:51 Cephalosporins Allergy Unknown Rash Verified 01/10/24 15:51 levothyroxine sodium Allergy Unknown Rash Verified 01/10/24 15:51 metoclopramide Allergy Unknown PANIC Verified 01/10/24 15:51 ATTACK morphine Allergy Unknown Rash Verified 01/10/24 15:51 Review of Systems Review of Systems: All systems reviewed & are unremarkable except as noted in HPI and below PMFSH Past Medical History Medical History (Updated 07/29/24 @ 00:00 by Background Daemon) Anemia Anxiety Back pain DDD (degenerative disc disease) Depression Endometriosis Fibromyalgia Heart murmur Hypothyroidism Kidney stones Migraines Mitral valve prolapse Ovarian cyst Pneumonia Rheumatoid arthritis Rib fractures UTI (urinary tract infection) Surgical History Surgical History History of hysterectomy Hx of cholecystectomy Hx of dilation and curettage Hx of ovarian cystectomy Hx of tonsillectomy Hx of tubal ligation Family History Family History Mother Family history of migraine headaches Asthma Social History Social History Smoking status: Heavy tobacco smoker Alcohol intake: current Gender identity (if verbalized by the patient): Female Exam Narrative: GENERAL: Well-appearing, well-nourished, and in no acute distress. HEAD: Normocephalic, atraumatic. EYES: EOMI. ENT: Nares clear, no rhinorrhea or epistaxis. Mucous membranes moist. NECK: Supple. CHEST: Clear to auscultation. No respiratory distress. HEART: Regular rate and rhythm. No murmur heard. Normal peripheral pulses. EXTREMITIES: Left foot with ecchymosis over the distal 3rd through 5th metatarsals and proximal aspect of the 3rd through 5th toes. Tenderness over the distal aspect of the left metatarsal and left 5th digit. No tenderness remainder foot or ankle. Patient able to wiggle toes, cap refill less than 2. DP pulses 2+. Sensation intact. SKIN: Warm, dry, no rash. NEURO: No focal deficits. Alert and oriented x3 Course Vital Signs Vital signs: Vital Signs Temperature 97.8 F 07/28/24 18:59 Pulse Rate 74 07/28/24 18:59 Respiratory Rate 17 07/28/24 18:59 Blood Pressure 153/84 H 07/28/24 18:59 Pulse Oximetry 100 07/28/24 18:59 Oxygen Delivery Room Air 07/28/24 18:59 Temperature 97.8 F 07/28/24 18:59 Pulse Rate 74 07/28/24 18:59 Respiratory Rate 17 07/28/24 18:59 Blood Pressure 153/84 H 07/28/24 18:59 Pulse Oximetry 100 07/28/24 18:59 Oxygen Delivery Room Air 07/28/24 18:59 MDM - Fall MDM Narrative Medical decision making narrative: 39-year-old female presents to emergency department for left foot pain after a ground level mechanical fall that occurred 3 days ago. Triage vitals with hyper tension 153/84, otherwise unremarkable. Exam is significant for the above. X- ray of the foot is unremarkable. Patient updated on workup. Offered a Koko wrap but she politely declined. Encouraged Tylenol ibuprofen, rice and follow-up with her PCP. Strict ED return precautions discussed. She is agreeable with the plan verbalized understanding. Discharged in stable condition. Discharge Plan Discharge Clinical Impression: Sprain of foot, left Patient Disposition: Home, Self-Care Condition: Stable Instructions: Antibiotic Form, Foot Sprain (ED) Additional Instructions: Your evaluated in the emergency department for left foot pain. Her x-ray showed no broken bones. Your exam is consistent with a foot sprain. Please rest, ice, elevate your foot and take Tylenol and ibuprofen as directed on the bottle as needed for pain. Please follow-up closely with her primary care provider. Return to the emergency department if he develops significantly worsening pain, cold or weight foot, or other concerning symptoms. Prescriptions: No Action ondansetron 4 mg tablet,disintegrating 4 mg PO Q6H PRN (Reason: nausea and vomiting) Qty: 10 0RF naproxen 500 mg tablet 500 mg PO BID Qty: 30 0RF hydrocodone-acetaminophen 5-325 mg tablet 1 tablet PO Q6H PRN (Reason: pain) Qty: 14 0RF amoxicillin-pot clavulanate 875-125 mg tablet 1 tablet PO Q12H Qty: 20 0RF Follow-up/Referrals: PHYSICIAN,[employer] SALES REPRESENTATIVE [Primary Care Provider] - Adriano Moreno MD [Physician] - 1 Day
== END 2024-07-28 20:00 | disposition home or self-care (01) ==
PROVIDERS: Emergency Provider Physician Assistant
DX: S93.602A Unspecified sprain of left foot, initial encounter (principal); W10.9XXA Fall (on) (from) unspecified stairs and steps, initial encounter; F41.8 Other specified anxiety disorders; E03.9 Hypothyroidism, unspecified; M06.9 Rheumatoid arthritis, unspecified; Z90.710 Acquired absence of both cervix and uterus; F17.210 Nicotine dependence, cigarettes, uncomplicated
CPT/HCPCS: 73630; 99283